=== PATIENT | male | born 1955 | race Caucasian/White ===

== ENCOUNTER 2019-12-24 11:55 | Emergency (ER) | payer OTHER ==
[~2019-12-24] VITALS: Ht 172.7 cm; Wt 75.0 kg
[2019-12-24 12:15] VITALS: BP 137/80
--- NOTE | 2019-12-24 12:40 | PHYS DOC ---
Past History Past Medical History: No Pertinent History Past Surgical History: Other Additional Past Surgical Histo: heart valve repair; pacemaker Alcohol Use: None General Adult EDM: Chief Complaint: TESTICULAR PAIN OR INJURY HPI: HPI: 64-year-old male presents with swollen right testicle. Patient first noticed yesterday. It is gotten worse since that time. It is now very tender and painful. He denies trauma. He has never had this before. Denies fever chills. Review of Systems: Review of Systems: Constitutional: Denies fever or chills Eyes: Denies change in visual acuity HENT: Denies nasal congestion or sore throat Respiratory: Denies cough or shortness of breath Cardiovascular: Denies chest pain or edema GI: Denies abdominal pain, nausea, vomiting, bloody stools or diarrhea : Swollen testicle Musculoskeletal: Denies back pain or joint pain Integument: Denies rash Neurologic: Denies headache, focal weakness or sensory changes Endocrine: Denies polyuria or polydipsia Lymphatic: Denies swollen glands Psychiatric: Denies depression or anxiety Heart Score: Risk Factors: Risk Factors: DM, Current or recent (<one month) smoker, HTN, HLP, family history of CAD, obesity. Risk Scores: Score 0 - 3: 2.5% MACE over next 6 weeks - Discharge Home Score 4 - 6: 20.3% MACE over next 6 weeks - Admit for Clinical Observation Score 7 - 10: 72.7% MACE over next 6 weeks - Early Invasive Strategies Allergies: Allergies: Allergies Coded Allergies Type Severity Reaction Last Updated Verified No Known Drug Allergies 12/24/19 No Physical Exam: PE: Constitutional: Well developed, well nourished, no acute distress, non-toxic appearance. [] HENT: Normocephalic, atraumatic, bilateral external ears normal, oropharynx moist, no oral exudates, nose normal. [] Eyes: PERRLA, EOMI, conjunctiva normal, no discharge. [] Neck: Normal range of motion, no tenderness, supple, no stridor. [] Cardiovascular:Heart rate regular rhythm, no murmur [] Lungs & Thorax: Bilateral breath sounds clear to auscultation [] Abdomen: Bowel sounds normal, soft, no tenderness, no masses, no pulsatile masses. [] Skin: Warm, dry, no erythema, no rash. [] Back: No tenderness, no CVA tenderness. [] Extremities: No tenderness, no cyanosis, no clubbing, ROM intact, no edema. [] Neurologic: Alert and oriented X 3, normal motor function, normal sensory function, no focal deficits noted. [] Psychologic: Affect normal, judgement normal, mood normal. : Swollen testicles right greater than left. [] Current Patient Data: Vital Signs: Vital Signs Date Time Temp Pulse Resp B/P (MAP) Pulse Ox O2 Delivery O2 Flow Rate FiO2 12/24/19 12:15 98.0 84 18 137/80 (99) 96 EKG: EKG: [] Radiology/Procedures: Radiology/Procedures: [] Impressions: EXAM: SCROTAL SONOGRAM WITH DOPPLER. HISTORY: Testicular pain and swelling. COMPARISON: None. FINDINGS: Grayscale and Doppler analysis of the scrotum and contents was performed. The right testicle measures 3.6 x 2.0 x 2.8 cm. The parenchyma is homogeneous without focal lesions. A portion of the epididymal body is heterogeneous and hyperemic. There is a 3 mm cyst in the epididymal head. Internal flow is normal. There is a moderate hydrocele. There is a small varicocele. The left testicle measures 3.8 x 2.8 x 2.0 cm. The parenchyma is homogeneous without focal lesions. The epididymal body appears enlarged and heterogeneous but is not clearly hyperemic. Internal flow is normal. There is a small hydrocele. There is a small varicocele. IMPRESSION: 1. Regions of paratesticular hypervascularity are thought to correspond with the epididymal bodies. Correlate for acute or acute on chronic epididymitis. 2. Small bilateral varicoceles. Correlate to exclude a cause of more proximal venous obstruction. 3. Moderate right and small left hydroceles. Electronically signed by: Rowena Onofre MD (12/24/2019 1:46 PM) [id number] DICTATED AND SIGNED BY: LANE ONOFRE MD DATE: 12/24/19 1346 CC: CODY STEELE DO; PCP,NO ~ Course & Med Decision Making: Course & Med Decision Making Pertinent Labs and Imaging studies reviewed. (See chart for details) The patient's ultrasound is negative for torsion. It is suggestive of epididymitis. I will treat him with levofloxacin 500 mg daily for 10 days. He will follow-up with his family physician and consider urology consult. He is stable for discharge at this time. I will also discharge him with a short course of [place] 5/325 for pain. [] Nieves Disclaimer: Nieves Disclaimer: This electronic medical record was generated, in whole or in part, using a voice recognition dictation system. Departure Departure: Impression: Primary Impression: Acute epididymitis Disposition: HOME/RESIDENCE PRIOR TO ADM Condition: STABLE Referrals: PCP,NO (PCP) Patient Instructions: Epididymitis Scripts Levofloxacin (LEVOFLOXACIN) 500 Mg Tablet 1 TAB PO DAILY for epididymitis, #10 TAB Prov: CODY STEELE DO 12/24/19 Hydrocodone Bit/Acetaminophen (NORCO 5-325 TABLET) 1 Each Tablet 1 TAB PO PRN Q6HRS PRN for PAIN, #14 TAB 0 Refills Prov: CODY STEELE DO 12/24/19 Justification of Admission: Justification of Admission: Justification of Admission Dx: N/A CODY STEELE DO Dec 24, 2019 12:40
[2019-12-24 12:44] LABS: BASO # 0.1 x10^3/uL (0.0-0.2); BASO % 1 % (0-3); EOS # 0.8 x10^3/uL (0.0-0.7); EOS % 7 % (0-3); HEMATOCRIT 42.4 % (39.0-53.0); HEMOGLOBIN 14.4 g/dL (13.0-17.5); LYMPH # 0.7 x10^3/uL (1.0-4.8); LYMPH % 6 % (24-48); MEAN CORPUSCULAR HEMOGLOBIN 31 pg (25-35); MEAN CORPUSCULAR HGB CONC 34 g/dL (31-37); MEAN CORPUSCULAR VOLUME 92 fL (79-100); MONO # 1.2 x10^3/uL (0.0-1.1); MONO % 11 % (0-9); NEUT # 8.3 x10^3uL (1.8-7.7); NEUT % 75 % (31-73); PLATELET COUNT 216 x10^3/uL (140-400); RED CELL DISTRIBUTION WIDTH 13.4 % (11.5-14.5)
[2019-12-24 12:54] LABS: CALCIUM 8.5 mg/dL (8.5-10.1); CREATININE 1.3 mg/dL (0.7-1.3); GFR 55.9; POTASSIUM 3.9 mmol/L (3.5-5.1)
[2019-12-24 13:00] LABS: ALBUMIN/GLOBULIN RATIO 0.7 (1.0-1.7); TOTAL BILIRUBIN 0.4 mg/dL (0.2-1.0); TOTAL PROTEIN 7.2 g/dL (6.4-8.2)
--- NOTE | 2019-12-24 13:49 | RAD ---
EXAM: SCROTAL SONOGRAM WITH DOPPLER. HISTORY: Testicular pain and swelling. COMPARISON: None. FINDINGS: Grayscale and Doppler analysis of the scrotum and contents was performed. The right testicle measures 3.6 x 2.0 x 2.8 cm. The parenchyma is homogeneous without focal lesions. A portion of the epididymal body is heterogeneous and hyperemic. There is a 3 mm cyst in the epididymal head. Internal flow is normal. There is a moderate hydrocele. There is a small varicocele. The left testicle measures 3.8 x 2.8 x 2.0 cm. The parenchyma is homogeneous without focal lesions. The epididymal body appears enlarged and heterogeneous but is not clearly hyperemic. Internal flow is normal. There is a small hydrocele. There is a small varicocele. IMPRESSION: 1. Regions of paratesticular hypervascularity are thought to correspond with the epididymal bodies. Correlate for acute or acute on chronic epididymitis. 2. Small bilateral varicoceles. Correlate to exclude a cause of more proximal venous obstruction. 3. Moderate right and small left hydroceles. Electronically signed by: Rowena Onofre MD (12/24/2019 1:46 PM) [id number]
[2019-12-24] MEDS ORDERED: LEVO500T8 PO (14:15)
[2019-12-24] MEDS ORDERED: HYDR-3165 PO (14:15)
== END 2019-12-24 14:29 | disposition home or self-care (01) ==
LOC: ER 11:55
DX: N45.1 Epididymitis (principal)
CPT/HCPCS: 36415; 76870; 80053; 85025; 99284-25

== ENCOUNTER 2020-04-09 15:12 | Emergency (ER) | payer OTHER ==
[~2020-04-09] VITALS: Ht 175.3 cm; Wt 73.0 kg
[~2020-04-09 15:12] MED LIST: HYDR-3165 PO; LEVO500T8 PO
[2020-04-09 15:21] VITALS: BP 133/75
[2020-04-09] MEDS ORDERED: SULF1TAB23 PO (15:30)
[2020-04-09] MEDS ORDERED: CEPH500T PO (15:30)
[2020-04-09] MEDS ORDERED: HYDR25TA PO (15:31)
--- NOTE | 2020-04-09 15:31 | PHYS DOC ---
Past History Past Medical History: No Pertinent History (HOLLAND BERMUDEZ APRN) Past Surgical History: Other Additional Past Surgical Histo: heart valve repair; pacemaker (HOLLAND BERMUDEZ APRN) Alcohol Use: None (HOLLAND BERMUDEZ APRN) Adult General Chief Complaint Chief Complaint: SKIN RASH/ABSCESS HPI HPI Patient is a 65-year-old male patient who presents complaining of a pruritic rash that began 3 days ago. Patient states he has worms coming out of the skin. Denies any fever. (HOLLAND BERMUDEZ APRN) Review of Systems Review of Systems Constitutional: Denies fever or chills [] Musculoskeletal: Denies back pain or joint pain [] Integument: Reports a pruritic rash Neurologic: Denies headache, focal weakness or sensory changes [] All other systems were reviewed and found to be within normal limits, except as documented in this note. (HOLLAND BERMUDEZ APRN) Allergies Allergies Allergies Coded Allergies Type Severity Reaction Last Updated Verified No Known Drug Allergies 04/09/20 No (HOLLAND BERMUDEZ APRN) Physical Exam Physical Exam Constitutional: Well developed, well nourished, no acute distress, non-toxic appearance. [] Skin: Mild amount of scabbed up region on bilateral upper extremities and small amount of, some of this region slightly erythematous but infected, no drainage. Suspicious for methamphetamine use. Back: No tenderness, no CVA tenderness. [] Extremities: No tenderness, no cyanosis, no clubbing, ROM intact, no edema. [] Neurologic: Alert and oriented X 3, normal motor function, normal sensory function, no focal deficits noted. [] Psychologic: Affect normal, judgement normal, mood normal. [] (HOLLAND BERMUDEZ APRN) EKG EKG [] (HOLLAND BERMUDEZ APRN) Radiology/Procedures Radiology/Procedures [] (HOLLAND BERMUDEZ APRN) Heart Score Risk Factors: Risk Factors: DM, Current or recent (<one month) smoker, HTN, HLP, family history of CAD, obesity. Risk Scores: Risk Factors: DM, Current or recent (<one month) smoker, HTN, HLP, family history of CAD, obesity. (HOLLAND BERMUDEZ APRN) Course & Med Decision Making Course & Med Decision Making Pertinent Labs and Imaging studies reviewed. (See chart for details) This is a 65-year-old male patient presenting to the ED today with infected rashes on bilateral upper extremities as well as scalp. Patient suspicious for methamphetamine use. Tetanus is up-to-date. Discharged on Bactrim and cephalexin. Encouraged to maintain home. Follow-up with primary care doctor in 2 weeks. (HOLLAND BERMUDEZ APRN) Course & Med Decision Making I have participated in the care of this patient and I have reviewed and agree with all pertinent clinical information above including history, exam, and recommendations. (ROB ABDUL MD) Dragon Disclaimer Dragon Disclaimer This electronic medical record was generated, in whole or in part, using a voice recognition dictation system. (HOLLAND BERMUEDZ APRN) Departure Departure: Impression: Primary Impression: Skin infection Disposition: DC HOME SELF CARE/HOMELESS Condition: STABLE Referrals: PCPJOSEPH (PCP) MYKE SANDY MD follow up in 2 weeks Patient Instructions: Rash, Skin Infections Additional Instructions: You have infected rash. Use the prescribed medications as ordered. Follow-up with a construction consultant in 2 weeks or your own primary care doctor. Scripts Hydroxyzine Hcl (HYDROXYZINE HCL) 25 Mg Tablet 1 TAB PO TID, #30 TAB Prov: HOLLAND BERMUDEZ APRN 04/09/20 Sulfamethoxazole/Trimethoprim (BACTRIM 400-80 MG TABLET) 1 Each Tablet 1 TAB PO BID for 10 Days, #20 TAB 0 Refills Prov: HOLLAND BERMUDEZ APRN 04/09/20 Cephalexin (CEPHALEXIN) 500 Mg Tablet 1 TAB PO TID, #30 TAB Prov: HOLLAND BERMUDEZ APRN 04/09/20 HOLLAND BERMUDEZ APRN Apr 09, 2020 15:31 ROB ABUDL MD Apr 09, 2020 16:04
== END 2020-04-09 15:35 | disposition home or self-care (01) ==
LOC: ER 15:12
DX: L08.89 Other specified local infections of the skin and subcutaneous tissue (principal); R21 Rash and other nonspecific skin eruption; L29.9 Pruritus, unspecified; Z95.0 Presence of cardiac pacemaker
CPT/HCPCS: 99283

== ENCOUNTER 2020-10-28 16:38 | Inpatient (IN) | payer OTHER ==
[~2020-10-28] VITALS: Ht 172.7 cm; Wt 68.4 kg
[~2020-10-28 16:38] MED LIST changes: +CEPH500T PO; +HYDR25TA PO; +SULF1TAB23 PO
[2020-10-28] MEDS ORDERED: ASPIRIN CHEWABLE 81 MG TABLET. PO ONE (17:00)
[2020-10-28] MEDS ORDERED: methylPREDNISolone SOD SUCC PF 125 MG/2 ML VIAL. IV ONE ×2 (17:30→19:07)
[2020-10-28] MEDS ORDERED: IPRATRPIUM/ALBUTEROL 0.5/2.5MG 3 ML NEBU. NEB ONE (17:30)
--- NOTE | 2020-10-28 17:33 | PHYS DOC ---
Past History Past Medical History: COPD, Hypertension, Other Additional Past Medical Histor: PACEMAKER, HEART VALVE REPLACEMENT, STROKE, COPD-? (CHI THOMPSON DO) Past Surgical History: Pacemaker, Other Additional Past Surgical Histo: HEART VALVE REPLACEMENT (CHI THOMPSON DO) Alcohol Use: None (CHI THOMPSON DO) Adult General Chief Complaint Chief Complaint: DYSPNEA/RESPIRATOY DISTRESS HPI HPI Patient is a 65-year-old male presenting via POV for shortness of breath. Reports onset was 4 days ago without any known inciting event, trauma, ingestion or exposure. Nothing known makes better, patient reports physical activity and continuing to smoke cigarettes make worse. Patient denies any hesham pain or ripping/tearing sensation in chest but rather endorses generalized tightness with wheezing. He has not had any productive cough, no fever, no sick contacts or recent travel. Reports he has history of COPD but nothing else. When later evaluated and pacemaker was present on chest, he later reports he thinks he has had some heart issues in the past. Also reports having heart valve replacement and is on warfarin, goal INR 2.0-3.0 with last check in range 2 weeks ago (CHI THOMPSON DO) Review of Systems Review of Systems Fourteen body systems of review of systems have been reviewed. See HPI for pertinent positives and negative responses, other sanchez all other systems are negative, non-pertinent or non-contributory (CHI THOMPSON DO) Current Medications Current Medications Current Medications Medications (Trade) Dose Ordered Sig/Everardo Start Time Stop Time Status Last Admin Dose Admin Albuterol/ Ipratropium (Duoneb) 3 ml 1X ONCE 10/28/20 17:30 10/28/20 17:31 10/28/20 17:29 3 ML Aspirin (Aspirin Chewable) 162 mg 1X ONCE 10/28/20 17:00 10/28/20 17:03 DC 10/28/20 17:28 162 MG Methylprednisolone Sodium Succinate (SOLU-Medrol 125MG VIAL) 125 mg 1X ONCE 10/28/20 17:30 10/28/20 17:31 10/28/20 17:29 125 MG (CHI THOMPSON DO) Allergies Allergies Allergies Coded Allergies Type Severity Reaction Last Updated Verified No Known Drug Allergies 04/09/20 No (CHI THOMPSON DO) Physical Exam Physical Exam Constitutional: Well developed, age-appropriate, thin in appearance HENT: Normocephalic, atraumatic, bilateral external ears normal, oropharynx moist, no oral exudates, nose normal. Eyes: PERRLA, EOMI, conjunctiva normal, no discharge. Neck: Normal range of motion, no tenderness, supple, no stridor. Cardiovascular: Heart rate regular, sinus rhythm, no murmurs rubs or gallops, pacemaker present to left upper outer chest Lungs & Thorax: No obvious respiratory distress or increased work of breathing, no accessory muscle use, there is diminished lung sounds to bilateral lobes with end expiratory wheezing present Abdomen: Bowel sounds normal, soft, no tenderness, no masses, no pulsatile masses. Nonsurgical abdomen, no peritoneal signs Skin: Warm, dry, no erythema, no rash. Back: No tenderness, no CVA tenderness. Extremities: No tenderness, no cyanosis, no clubbing, ROM intact, no edema. Neurologic: Alert and oriented X 3, grossly normal motor & sensory function, no focal deficits noted. Psychologic: Affect normal, judgement normal, mood normal. (CHI THOMPSON DO) Current Patient Data Vital Signs Vital Signs Date Time Temp Pulse Resp B/P (MAP) Pulse Ox O2 Delivery O2 Flow Rate FiO2 10/28/20 16:40 97.6 82 24 150/89 (109) 99 Room Air (CHI THOMPSON DO) EKG EKG EKG ordered and interpreted by myself at 1729 hrs. as sinus rhythm at 78 bpm, prolonged QRS at 168, prolonged QTC at 490, left axis deviation, T wave abnormality noted in lead I and aVL, nonspecific ST-T wave changes noted in lead III and aVF with no reciprocal abnormalities. No STEMI (CHI THOMPSON DO) Radiology/Procedures Radiology/Procedures [] (CHI THOMPSON DO) Heart Score C/O Chest Pain: No HEART Score for Chest Pain: HEART Score for Chest Pain Response (Comments) Value History Moderately Suspicious 1 ECG Nonspecific Repolarizatio 1 Age >45 - < 65 1 Risk Factors >3 Risk Factors or Hx CAD 2 Total 5 Risk Factors: Risk Factors: DM, Current or recent (<one month) smoker, HTN, HLP, family history of CAD, obesity. Risk Scores: Risk Factors: DM, Current or recent (<one month) smoker, HTN, HLP, family history of CAD, obesity. (CHI THOMPSON DO) Course & Med Decision Making Course & Med Decision Making Airway patent, breathing unlabored but there is concern for wheeze, IV and vitals obtained History limited as patient is poor historian but appears high risk, physical exam concerning for likely COPD/respiratory related illness such as COPD exacerbation. ER work-up started 162 mg aspirin, 125 mg Solu-Medrol and x1 DuoNeb administered At this time in care, my shift is ending. I gave comprehensive signout to oncoming physician and reviewed work-up that was pending with him and proposed plan of care. Please defer to Dr. Franks's documentation regarding future care of patient while in ER Critical Care Time This patient required critical care. Due to the fact that the patient required a significant amount of one on one physician - patient contact time, ordering and review of studies, arranging urgent treatment with development of a management plan, evaluation of patients response to treatment with frequent reassessments, and discussions with other providers this patient required 35 minutes of critical care time. Critical care time was indicated due to the inherent instability and/or potential for instability in this patient. The critical care time that is allocated to this patient is above and beyond any time spent on any other billable procedures performed on this patient. (CHI THOMPSON DO) Course & Med Decision Making See Dr. Thompson chart for details prior shift change. Denies COVID risks. Has not had COVID vaccinations. Impression: 1. COPD Exacerbation 2. Elevated Trop. 0.064 3. Tobacco 4. Hx. Aortic Value, pacer and CABG- KU 2016 5. Subtherapeutic INR / PT 1.1 (STEVEN FRANKS MD) Dragon Disclaimer Dragon Disclaimer This electronic medical record was generated, in whole or in part, using a voice recognition dictation system. (CHI THOMPSON DO) Departure Departure: Impression: Primary Impression: COPD exacerbation Additional Impression: Elevated troponin Disposition: ADMITTED INPATIENT Admitting Physician: Lalito Rebollar (CHI THOMPSON DO) Condition: STABLE Referrals: PCP,NO (PCP) Dragon Disclaimer This chart was dictated in whole or in part using Voice Recognition software in a busy, high-work load, and often noisy Emergency Department environment. It may contain unintended and wholly unrecognized errors or omissions. (STEVEN FRANKS MD) Problem Qualifiers CHI THOMPSON DO Oct 28, 2020 17:33 STEVEN FRANKS MD Oct 28, 2020 19:04
[2020-10-28 17:36] LABS: BASO # 0.1 x10^3/uL (0.0-0.2); BASO % 1 % (0-3); EOS # 0.7 x10^3/uL (0.0-0.7); EOS % 7 % (0-3); HEMATOCRIT 45.8 % (39.0-53.0); HEMOGLOBIN 15.6 g/dL (13.0-17.5); LYMPH # 2.3 x10^3/uL (1.0-4.8); LYMPH % 21 % (24-48); MEAN CORPUSCULAR HEMOGLOBIN 31 pg (25-35); MEAN CORPUSCULAR HGB CONC 34 g/dL (31-37); MEAN CORPUSCULAR VOLUME 92 fL (79-100); MONO # 1.2 x10^3/uL (0.0-1.1); MONO % 11 % (0-9); NEUT # 6.3 x10^3uL (1.8-7.7); NEUT % 59 % (31-73); PLATELET COUNT 251 x10^3/uL (140-400); RED CELL DISTRIBUTION WIDTH 15.4 % (11.5-14.5); WHITE BLOOD COUNT 10.7 x10^3/uL (4.0-11.0)
[2020-10-28 17:59] LABS: GFR 75.5; POTASSIUM 4.3 mmol/L (3.5-5.1)
[2020-10-28] MEDS ORDERED: AZITHROMYCIN 250 MG TABLET. PO ONE (19:00)
[2020-10-28] MEDS ORDERED: ACETAMINOPHEN 325 MG TABLET PO PRN (19:00)
[2020-10-28] MEDS ORDERED: ONDANSETRON PF 4 MG/2 ML VIAL. IVP PRN (19:00)
[2020-10-28] MEDS ORDERED: WARFARIN 5 MG TABLET. PO ONE (19:15)
[2020-10-28 20:00] VITALS: BP 128/83
--- NOTE | 2020-10-28 20:00 | NUR ---
Pt was admit to ICU bed 6 from ER via [facility], accompanied by EMS and hospital staff. Pt transferred from [facility] to bed independently, steady gait noted. Admission assessment completed. VSS. Pt placed on Telemetry, V.paced on monitor. Pt with hx of mechanical Aortic valve replacement and pacemaker placement. Pt is poor historian but able to given pertinent health/surgical history and home medications. 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 Coumadin and ASA for VTE. Pt has NOT had any Covid vaccines. Pt lives at home with daughter. RT consulted for smoking cessation. POC reviewed with pt, understanding verbalized. Pt was given written information regarding hospital policies, unit procedures and contact persons. Valuables were checked and left at bedside. Pt was given box lunch per request. Dr Smooth russell for admit orders and restarted home medications. Cardiology consult for AM.
[2020-10-28] MEDS ORDERED: WARF7.5T45 PO (20:13)
[2020-10-28] MEDS ORDERED: CLON0.5T4 PO (20:13)
[2020-10-28] MEDS ORDERED: ASPI-630 PO (20:13)
--- NOTE | 2020-10-28 20:20 | RAD ---
Exam Date: 10/28/2020 4:59 PM XR CHEST 1V Indication: Reason: SOB / Spl. Instructions: / History: . FINDINGS/ IMPRESSION: The aorta is calcified. Postoperative changes are noted with cardiac pacemaker in place. Mild bibasil ar scarring and/or atelectasis is seen. The cardiac silhouette and pulmonary vasculature are within normal limits. There is no appreciable pleural effusion or pneumothorax. Electronically signed by: Buddy Barone MD (10/28/2020 8:18 PM) [facility] [place]
[2020-10-28] MEDS: clonazePAM 0.5 MG TABLET PO PRN (20:22)
[2020-10-28] MEDS: NICOTINE 21MG PATCH. TD PRN (20:23)
[2020-10-28] MEDS: IPRATRPIUM/ALBUTEROL 0.5/2.5MG 3 ML NEBU. NEB SCH (20:24)
[2020-10-28 20:40] VITALS: BP 106/76
[2020-10-28 21:40] VITALS: BP 110/67
[2020-10-28] MEDS: methylPREDNISolone SOD SUCC PF 125 MG/2 ML VIAL. IV SCH ×2 (21:59→22:01)
[2020-10-28 22:50] VITALS: BP 107/66
[2020-10-28 23:45] VITALS: BP 103/60
[2020-10-29] VITALS (17 sets, daily range): BP systolic 90–163; BP diastolic 58–107
--- NOTE | 2020-10-29 04:16 | EKG ---
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
[2020-10-29] MEDS: methylPREDNISolone SOD SUCC PF 125 MG/2 ML VIAL. IV SCH ×3 (06:00→22:02)
[2020-10-29] MEDS: IPRATRPIUM/ALBUTEROL 0.5/2.5MG 3 ML NEBU. NEB SCH ×4 (06:20→22:00)
[2020-10-29 06:34] LABS: BASO % 0 % (0-3); EOS % 0 % (0-3); HEMATOCRIT 42.6 % (39.0-53.0); HEMOGLOBIN 14.6 g/dL (13.0-17.5); LYMPH # 0.6 x10^3/uL (1.0-4.8); LYMPH % 6 % (24-48); MEAN CORPUSCULAR HEMOGLOBIN 32 pg (25-35); MEAN CORPUSCULAR HGB CONC 34 g/dL (31-37); MEAN CORPUSCULAR VOLUME 92 fL (79-100); MONO # 0.1 x10^3/uL (0.0-1.1); MONO % 1 % (0-9); NEUT # 9.2 x10^3uL (1.8-7.7); NEUT % 93 % (31-73); PLATELET COUNT 232 x10^3/uL (140-400); RED BLOOD COUNT 4.65 x10^6/uL (4.30-5.70); RED CELL DISTRIBUTION WIDTH 15.2 % (11.5-14.5); WHITE BLOOD COUNT 9.9 x10^3/uL (4.0-11.0)
[2020-10-29 06:48] LABS: CREATININE 1.2 mg/dL (0.7-1.3); GFR 61.1
[2020-10-29] MEDS: ASPIRIN CHEWABLE 81 MG TABLET. PO SCH (08:08)
--- NOTE | 2020-10-29 08:34 | HP ---
ADMIT DATE: 10/28/2020 CHIEF COMPLAINT: Shortness of breath. HISTORY OF PRESENT ILLNESS: The patient is a 65-year-old gentleman admitted through the ED with a gradual progressive 4-day history of dyspnea, orthopnea and exertional dyspnea. No recent fevers or chills. He has a dry nonproductive cough. He is on Coumadin for a mechanical heart valve. Chest x-ray showed COPD changes. He continues to smoke one to 2 packs of cigarettes daily. He has very little insight into his condition. He is admitted then with acute on chronic respiratory failure and exacerbation of chronic obstructive pulmonary disease. 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 He has a mechanical valve. I can auscultate the mechanical click. He is on Coumadin. He also has a permanent pacemaker. He also has had a stroke with minimal residual and chronic obstructive pulmonary disease. CURRENT MEDICATIONS: None. ALLERGIES: He has no known drug allergies. SOCIAL HISTORY: He has no primary care physician. He is disabled. He has been on social security since he was 47. FAMILY HISTORY: His family history indicate parents have in their mid 80s. He has no insight as to what the cause of was. He lives on social security disability. 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 He is not employed now. REVIEW OF SYSTEMS: Significant dyspnea with exertion. No recent COVID exposure. CURRENT MEDICINES: Coumadin only 7.5 mg daily. PHYSICAL EXAMINATION: GENERAL: When I saw him, this is a pleasant gentleman who appears older than his stated age of 65. VITAL SIGNS: Initial vital signs showed a blood pressure 109/67 mmHg. He is afebrile. Oxygen saturation 96% on just 1 liter. Repeat was 95% on room air. HEENT: Head is without trauma. Pupils are reactive. Sclerae nonicteric. Oropharynx clear. NECK: Supple. No bruits identified. LUNGS: Diffuse wheezing bilaterally. CARDIOVASCULAR: Showed distant heart tones. He has normal S1. There is a variable S2. There is a noticeable click of a functioning mechanical heart valve. The tones are crisp. There is a slight soft grade II systolic murmur at the left sternal border. Peripheral pulses are palpable and full. Pacemaker is in the antecubital fossa and well seated. ABDOMEN: Soft. EXTREMITIES: Without edema. NEUROLOGIC: Focally intact. PERTINENT LABORATORY STUDIES: The first set of cardiac enzyme was 0.06, hemoglobin was 10.7 g/dL with a white count of 15,600. INR has been ordered and is pending at this time. ASSESSMENT: 1. This 65-year-old gentleman has acute on chronic respiratory failure. 2. Exacerbation of chronic obstructive pulmonary disease. 3. Continue tobacco addiction. 4. 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 5. Chronic anticoagulation. 6. Permanent pacemaker. 7. Elevation of cardiac enzymes due to stress demand ischemia. PLAN: 1. Admit to the inpatient unit. 2. Serial cardiac enzymes. 3. Solu-Medrol. 4. Nebulizer therapy. 5. Continue Coumadin as ordered. 6. Formal consultation for Cardiology given his positive enzymes. LETA DR: Phoebe TID: [id number]
--- NOTE | 2020-10-29 09:03 | PDOC2 ---
LORI ODOM ELIZABETH 10/29/20 0903: CARDIAC CONSULT DATE OF CONSULT DOS: DATE: 10/29/20 TIME: 08:57 REASON FOR CONSULT Reason for Consult CP, elevated trop REFERRING PHYSICIAN Referring Physician Dr. Rebollar SOURCE Source: Chart review, Patient HPI History of Present Illness This is a 65 yo male who presented secondary to shortness of breath and cough productive of yellow/green sputum. Has been more short of breath the last 4-5 days. Worse with exertion. [place] wheezy. No significant LE edema. [place] any specific chest pain or pressure. No dizziness, diaphoresis, or palpitations. Has a history of mechanical aortic valve replacement. Reports compliance with meds, although suspect he had not been fully compliance as he reports warfarin 7.5mg daily and INR is 1.1 upon arrival. Follows with [facility]. PAST MEDICAL HISTORY Cardiovascular: CAD, HTN, Other (endocarditis ) Pulmonary: COPD CENTRAL NERVOUS SYSTEM: CVA Hepatobiliary: Hep A/B/C (C) PAST SURGICAL HISTORY Past Surgical History: CABG, Pacemaker, Other (aortic valve ) FAMILY HISTORY Family History: Hypertension SOCIAL HISTORY Smoke: 1 pack per day ALCOHOL: none Drugs: Other (h/o meth use ) Lives: with Family CURRENT MEDICATIONS Current Medications Current Medications Aspirin (Aspirin Chewable) 162 mg 1X ONCE PO Last administered on 10/28/20at 17:28; Start 10/28/20 at 17:00; Stop 10/28/20 at 17:03; Status DC Methylprednisolone Sodium Succinate (SOLU-Medrol 125MG VIAL) 125 mg 1X ONCE IV Last administered on 10/28/20at 17:29; Start 10/28/20 at 17:30; Stop 10/28/20 at 17:31; Status DC Albuterol/ Ipratropium (Duoneb) 3 ml 1X ONCE NEB Last administered on 10/28/20at 17:29; Start 10/28/20 at 17:30; Stop 10/28/20 at 17:31; Status DC Ondansetron HCl (Zofran) 4 mg PRN Q4HRS PRN IVP NAUSEA/VOMITING; Start 10/28/20 at 19:00; Stop 10/29/20 at 18:59 Acetaminophen (Tylenol) 650 mg PRN Q4HRS PRN PO FEVER > 100.3'F Last administered on 10/28/20at 20:21; Start 10/28/20 at 19:00; Stop 10/29/20 at 18:59 Albuterol/ Ipratropium (Duoneb) 3 ml RTQID NEB Last administered on 10/29/20at 06:20; Start 10/28/20 at 20:00; Stop 10/29/20 at 19:59 Methylprednisolone Sodium Succinate (SOLU-Medrol 125MG VIAL) 80 mg 1X ONCE IV ; Start 10/28/20 at 19:07; Stop 10/28/20 at 19:08; Status DC Warfarin Sodium (Coumadin) 7.5 mg 1X ONCE PO Last administered on 10/28/20at 20:20; Start 10/28/20 at 19:15; Stop 10/28/20 at 19:16; Status DC Azithromycin (Zithromax) 500 mg 1X ONCE PO Last administered on 10/28/20at 20:20; Start 10/28/20 at 19:00; Stop 10/28/20 at 19:07; Status DC Methylprednisolone Sodium Succinate (SOLU-Medrol 125MG VIAL) 60 mg Q8HRS IV Last administered on 10/29/20at 06:00; Start 10/28/20 at 22:00 Nicotine (Nicoderm Cq 21mg Patch) 1 patch PRN DAILY PRN TD SMOKING CESSATION Last administered on 10/28/20at 20:23; Start 10/28/20 at 20:15 Aspirin (Aspirin Chewable) 81 mg DAILY PO Last administered on 10/29/20at 08:08; Start 10/29/20 at 09:00 Clonazepam (KlonoPIN) 0.5 mg PRN BID PRN PO ANXIETY / AGITATION Last administered on 10/28/20at 20:22; Start 10/28/20 at 20:15 Warfarin Sodium (Coumadin) 7.5 mg DAILY16 PO ; Start 10/29/20 at 16:00 Warfarin Sodium (Coumadin Per Physician) 1 each PRN DAILY PRN MC SEE COMMENTS; Start 10/28/20 at 20:30 Active Scripts Active Reported Clonazepam 0.5 Mg Tablet 0.5 Mg PO PRN BID PRN LAST DOSE GIVEN: DATE: TIME: NEXT DOSE DUE: DATE: TIME: Aspirin 81 Mg Tab.chew 81 Mg PO DAILY LAST DOSE GIVEN: DATE: TIME: NEXT DOSE DUE: DATE: TIME: Warfarin Sodium 7.5 Mg Tablet 7.5 Mg PO DAILY LAST DOSE GIVEN: DATE: TIME: NEXT DOSE DUE: DATE: TIME: ALLERGIES Allergies: Coded Allergies: No Known Drug Allergies (Unverified , 04/09/20) ROS Review of Systems 14 point ROS conducted with pertinent positives noted above in HPI PHYSICAL EXAM General: Alert, Oriented X3, Cooperative, No acute distress HEENT: Atraumatic Lungs: Other (diminished ) Heart: Regular rate, Other (v-paced with underlying SR) Abdomen: Soft Extremities: No edema, Normal pulses Skin: No breakdown Neuro: Normal speech, Sensation intact Psych/Mental Status: Mental status NL, Mood NL MUSCULOSKELETAL: Osteoarthritic changes both hands VITALS Vital Signs Vital Signs Date Time Temp Pulse Resp B/P (MAP) Pulse Ox O2 Delivery O2 Flow Rate FiO2 10/29/20 08:19 97.9 83 101/66 (78) 95 Room Air 10/29/20 07:32 1.0 10/29/20 06:40 20 LABS LABS Laboratory Tests Test 10/28/20 17:15 10/28/20 20:10 10/28/20 22:50 10/29/20 06:09 White Blood Count 10.7 x10^3/uL (4.0-11.0) 9.9 x10^3/uL (4.0-11.0) Red Blood Count 5.00 x10^6/uL (4.30-5.70) 4.65 x10^6/uL (4.30-5.70) Hemoglobin 15.6 g/dL (13.0-17.5) 14.6 g/dL (13.0-17.5) Hematocrit 45.8 % (39.0-53.0) 42.6 % (39.0-53.0) Mean Corpuscular Volume 92 fL (79-100) 92 fL (79-100) Mean Corpuscular Hemoglobin 31 pg (25-35) 32 pg (25-35) Mean Corpuscular Hemoglobin Concent 34 g/dL (31-37) 34 g/dL (31-37) Red Cell Distribution Width 15.4 % (11.5-14.5) 15.2 % (11.5-14.5) Platelet Count 251 x10^3/uL (140-400) 232 x10^3/uL (140-400) Neutrophils (%) (Auto) 59 % (31-73) 93 % (31-73) Lymphocytes (%) (Auto) 21 % (24-48) 6 % (24-48) Monocytes (%) (Auto) 11 % (0-9) 1 % (0-9) Eosinophils (%) (Auto) 7 % (0-3) 0 % (0-3) Basophils (%) (Auto) 1 % (0-3) 0 % (0-3) Neutrophils # (Auto) 6.3 x10^3uL (1.8-7.7) 9.2 x10^3uL (1.8-7.7) Lymphocytes # (Auto) 2.3 x10^3/uL (1.0-4.8) 0.6 x10^3/uL (1.0-4.8) Monocytes # (Auto) 1.2 x10^3/uL (0.0-1.1) 0.1 x10^3/uL (0.0-1.1) Eosinophils # (Auto) 0.7 x10^3/uL (0.0-0.7) 0.0 x10^3/uL (0.0-0.7) Basophils # (Auto) 0.1 x10^3/uL (0.0-0.2) 0.0 x10^3/uL (0.0-0.2) Prothrombin Time 11.1 SEC (9.4-11.4) 11.1 SEC (9.4-11.4) Prothromb Time International Ratio 1.1 (0.9-1.1) 1.1 (0.9-1.1) Activated Partial Thromboplast Time 32 SEC (23-33) Sodium Level 142 mmol/L (136-145) 143 mmol/L (136-145) Potassium Level 4.3 mmol/L (3.5-5.1) 4.0 mmol/L (3.5-5.1) Chloride Level 107 mmol/L (98-107) 108 mmol/L (98-107) Carbon Dioxide Level 25 mmol/L (21-32) 24 mmol/L (21-32) Anion Gap 10 (6-14) 11 (6-14) Blood Urea Nitrogen 21 mg/dL (8-26) 25 mg/dL (8-26) Creatinine 1.0 mg/dL (0.7-1.3) 1.2 mg/dL (0.7-1.3) Estimated GFR (Cockcroft-Gault) 75.5 61.1 Glucose Level 73 mg/dL (70-99) 218 mg/dL (70-99) Calcium Level 9.0 mg/dL (8.5-10.1) 9.0 mg/dL (8.5-10.1) Troponin I Quantitative 0.064 ng/mL (0-0.055) 0.067 ng/mL (0-0.055) 0.061 ng/mL (0-0.055) BG-Hkp-T-Type Natriuretic Peptide 173 pg/mL (0-124) ECHOCARDIOGRAM Echocardiogram 10/03/17 - 2-D + DOPPLER ECHOCARDIOGRAM Interpretation Summary Hyperdynamic left ventricle with an EF of 65-70%. Abnormal septal motion consistent with prior cardiac surgery, otherwise no regional wall motion abnormalities. Mild LVH. Moderate diastolic dysfunction. Elevated left atrial pressure. Normal right ventricular size and function. Right-sided pacer leads are noted. MAC with trace MR. Mild TR. There is a 23 mm [place] mechanical aortic valve replacement. The valve was not visualized itself, but the gradients do suggest prosthetic stenosis. The peak velocity was 4.2 m/s, the peak gradient was 72 mmHg, the mean gradient was 33 mmHg. There is trace transvalvular AI, there is no paravalvular AI. Peak PAP of 19 mmHg. Normal aortic root diameter. No pericardial effusion. This was compared to the prior study obtained on 06/18/2015. It showed an EF of 60%, RV function was normal, right-sided pacer leads were noted, there is mild TR, the mechanical aortic valve replacement had a peak velocity of 3.4 m/s, with a peak gradient 45 mmHg, and a mean gradient 22 mmHg, there is no significant AI, the peak bony pressure is 23 mmHg, the aortic root was normal in size. There has been progressive elevation of the mechanical aortic valve gradient since the prior study, suggestive of progressive stenosis. STRESS TEST Stress Test 07/18/2015 SUMMARY/OPINION: This study is normal with no evidence of significant myocardial ischemia. Left ventricular systolic function is normal. There are no high risk prognostic indicators present. The ECG portion of the study is negative for ischemia. There are no prior studies available for comparison. In aggregate the current study is low risk in regards to predicted annual cardiovascular mortality rate. HEART CATH Heart Cath 09/15/2012 A 100 percent occluded heavily calcific mid RCA lesion, status post failed att empt at revascularization. A 60 percent mid LAD lesion and 30 percent diffuse distal and apical stenosis. Completely occluded vein graft to the obtuse marginal branch. A 70 percent mid left circumflex/ostial 1st obtuse marginal branch lesions. Successful rotational atherectomy with a 1.5 mm multilink of the mid RCA. Successful stenting of the mid RCA using a Vision bare metal stent 3.5 x 28 mm postdilated with a 4.0 mm balloon. ASSESSMENT/PLAN Assessment/Plan 1. Dyspnea with AE COPD with ongoing tobaccosim 2. Mild troponin elevation; peak 0.067. most probably type type II, demand ischemia. CP free. 3. CAD s/p CABG 2000 and more recent PCI/stent to RCA in 2012. Follows with [facility] 4. HTN; controlled 5. PAFIB; maintaining SR 6. SSS s/p PPM (Medtronic); v-paced 7. H/o bicuspid aortic valve and infectious endocarditis s/p mechanical aortic valve replacement 2000. chronic OAC with warfarin. INR 1.1. Patient reports compliance with warfarin. 8. H/o CVA 9. Suspected noncompliance Recommendations Secondary prevention; continue ASA. Add statin Add BB for rate control Warfarin for stroke prophylaxis Will use Lovenox while INR subtherapeutic Outpatient ischemic evaluation Ongoing lung optimization Supportive care Discussed importance of medical compliance MELISSA AGUILERA MD 10/29/208: CARDIAC CONSULT ASSESSMENT/PLAN Assessment/Plan Patient seen and examined. Agree with TELEPHONE OPERATOR RECEPTIONIST's assessment and plan. Continue current treatment for AECOPD Slight trop elevation prob demand ischemia CAD clinically stable. Plan outpatient ischemic evaluation PAF presently SR. s/p mechanical AVR - Continue warfarin for stroke prophylaxis. Agree with lovenox bridging for subtherapeutic INR Thank you for your consultation LORI ODOM APRN Oct 29, 2020 09:03 MELISSA AGUILERA MD Oct 29, 2020 22:38
[2020-10-29] MEDS: ENOXAPARIN ** NOTE DOSE ** SYRINGE SQ SCH ×2 (10:11→20:55)
[2020-10-29] MEDS: WARFARIN 7.5 MG TABLET. PO SCH ×2 (12:32→16:00)
[2020-10-29] MEDS ORDERED: WARFARIN 5 MG TABLET. PO ONE (13:00)
--- NOTE | 2020-10-29 17:12 | NUR ---
SHIFT NOTE Pt resting comfortably throughout day. No complaints of pain. Plan of care includes improving breathing and reaching a therapeutic INR. Dr. Rebollar prescribed Lovenox BID to bridge. VSS throughout day. Will continue to monitor. GREG RN
[2020-10-29] MEDS ORDERED: METOPROLOL SUCC 24HR ER 25 MG TAB.ER.24H. PO ONE (18:45)
[2020-10-29] MEDS: clonazePAM 0.5 MG TABLET PO PRN (20:55)
[2020-10-29] MEDS: NICOTINE 21MG PATCH. TD PRN (20:55)
[2020-10-29] MEDS ORDERED: ATORVASTATIN CALCIUM 20 MG TABLET PO SCH (21:00)
[2020-10-30 03:15] VITALS: BP 129/88
[2020-10-30 03:45] VITALS: BP 119/80
[2020-10-30 05:10] VITALS: BP 138/80
[2020-10-30] MEDS: IPRATRPIUM/ALBUTEROL 0.5/2.5MG 3 ML NEBU. NEB SCH ×2 (05:27→09:32)
[2020-10-30] MEDS: methylPREDNISolone SOD SUCC PF 125 MG/2 ML VIAL. IV SCH (05:38)
--- NOTE | 2020-10-30 08:19 | PDOC ---
CARDIO Progress Notes Date & Time Date of Service DATE: 10/30/20 TIME: 08:16 Time of Evaluation 08:16 Subjective Notes Breathing improved. No chest pain, palpitations, dizziness Vitals Vitals Vital Signs Date Time Temp Pulse Resp B/P (MAP) Pulse Ox O2 Delivery O2 Flow Rate FiO2 10/30/20 05:29 97 Room Air 10/30/20 05:10 98.4 83 20 138/80 (99) 10/29/20 07:32 1.0 Weight Weight [ ] Input and Output I.O. Intake and Output 10/30/20 07:00 Intake Total 2070 ml Output Total 300 ml Balance 1770 ml Intake Oral 2070 ml Output Urine Total 300 ml # Voids 9 # Bowel Movements 2 Laboratory Labs Laboratory Tests Test 10/28/20 17:15 10/28/20 20:10 10/28/20 22:50 10/29/20 06:09 White Blood Count 10.7 x10^3/uL (4.0-11.0) 9.9 x10^3/uL (4.0-11.0) Red Blood Count 5.00 x10^6/uL (4.30-5.70) 4.65 x10^6/uL (4.30-5.70) Hemoglobin 15.6 g/dL (13.0-17.5) 14.6 g/dL (13.0-17.5) Hematocrit 45.8 % (39.0-53.0) 42.6 % (39.0-53.0) Mean Corpuscular Volume 92 fL (79-100) 92 fL (79-100) Mean Corpuscular Hemoglobin 31 pg (25-35) 32 pg (25-35) Mean Corpuscular Hemoglobin Concent 34 g/dL (31-37) 34 g/dL (31-37) Red Cell Distribution Width 15.4 % (11.5-14.5) 15.2 % (11.5-14.5) Platelet Count 251 x10^3/uL (140-400) 232 x10^3/uL (140-400) Neutrophils (%) (Auto) 59 % (31-73) 93 % (31-73) Lymphocytes (%) (Auto) 21 % (24-48) 6 % (24-48) Monocytes (%) (Auto) 11 % (0-9) 1 % (0-9) Eosinophils (%) (Auto) 7 % (0-3) 0 % (0-3) Basophils (%) (Auto) 1 % (0-3) 0 % (0-3) Neutrophils # (Auto) 6.3 x10^3uL (1.8-7.7) 9.2 x10^3uL (1.8-7.7) Lymphocytes # (Auto) 2.3 x10^3/uL (1.0-4.8) 0.6 x10^3/uL (1.0-4.8) Monocytes # (Auto) 1.2 x10^3/uL (0.0-1.1) 0.1 x10^3/uL (0.0-1.1) Eosinophils # (Auto) 0.7 x10^3/uL (0.0-0.7) 0.0 x10^3/uL (0.0-0.7) Basophils # (Auto) 0.1 x10^3/uL (0.0-0.2) 0.0 x10^3/uL (0.0-0.2) Prothrombin Time 11.1 SEC (9.4-11.4) 11.1 SEC (9.4-11.4) Prothromb Time International Ratio 1.1 (0.9-1.1) 1.1 (0.9-1.1) Activated Partial Thromboplast Time 32 SEC (23-33) Sodium Level 142 mmol/L (136-145) 143 mmol/L (136-145) Potassium Level 4.3 mmol/L (3.5-5.1) 4.0 mmol/L (3.5-5.1) Chloride Level 107 mmol/L (98-107) 108 mmol/L (98-107) Carbon Dioxide Level 25 mmol/L (21-32) 24 mmol/L (21-32) Anion Gap 10 (6-14) 11 (6-14) Blood Urea Nitrogen 21 mg/dL (8-26) 25 mg/dL (8-26) Creatinine 1.0 mg/dL (0.7-1.3) 1.2 mg/dL (0.7-1.3) Estimated GFR (Cockcroft-Gault) 75.5 61.1 Glucose Level 73 mg/dL (70-99) 218 mg/dL (70-99) Calcium Level 9.0 mg/dL (8.5-10.1) 9.0 mg/dL (8.5-10.1) Troponin I Quantitative 0.064 ng/mL (0-0.055) 0.067 ng/mL (0-0.055) 0.061 ng/mL (0-0.055) TT-Gkq-[id number]-Type Natriuretic Peptide 173 pg/mL (0-124) Triglycerides Level 30 mg/dL (0-150) Cholesterol Level 133 mg/dL (0-200) LDL Cholesterol, Calculated 75 mg/dL (0-100) VLDL Cholesterol, Calculated 6 mg/dL (0-40) Non-HDL Cholesterol Calculated 81 mg/dL (0-129) HDL Cholesterol 52 mg/dL (40-60) Cholesterol/HDL Ratio 2.0 Test 10/30/20 05:43 Prothrombin Time 20.9 SEC (9.4-11.4) Prothromb Time International Ratio 2.1 (0.9-1.1) Physical Exams HEENT: Neck Supple W Full Motion Chest: Symmetric Heart: RRR (v-paced with underlying SR) Abdomen: Soft N/T Extremities: No Edema Neurology: alert, oriented, follow commands Assessment Assessment 1. Dyspnea with AE COPD with ongoing tobaccosim. improved. Smoking cessation reinforced 2. Mild troponin elevation; peak 0.067. most probably type type II, demand ischemia. CP free. 3. CAD s/p CABG 2000 and more recent PCI/stent to RCA in 2012. Follows with [facility]. clinically stable 4. HTN; controlled 5. PAFIB; episode of AFIB/flutter with RVR yesterday evening. Now back in SR with controlled rate with resumption of BB 6. SSS s/p PPM (Medtronic); v-paced 7. H/o bicuspid aortic valve and infectious endocarditis s/p mechanical aortic valve replacement 2000. chronic OAC with warfarin. INR now 2.1 8. H/o CVA 9. Suspected noncompliance Recommendations Secondary prevention; continue ASA, statin Metoprolol for rate control Warfarin for stroke prophylaxis Outpatient ischemic evaluation Lung optimization Reinforced importance of medical compliance Follow up with [facility] upon discharge Supportive care LORI ODOM APRN Oct 30, 2020 08:19
[2020-10-30] MEDS ORDERED: METOPROLOL SUCC 24HR ER 25 MG TAB.ER.24H. PO SCH (09:00)
[2020-10-30] MEDS: ASPIRIN CHEWABLE 81 MG TABLET. PO SCH (09:02)
[2020-10-30] MEDS: WARFARIN 7.5 MG TABLET. PO SCH ×2 (09:02→09:47)
[2020-10-30] MEDS: ENOXAPARIN ** NOTE DOSE ** SYRINGE SQ SCH (09:03)
[2020-10-30 11:00] VITALS: BP 128/76
--- NOTE | 2020-10-30 12:03 | DS ---
DATE OF DISCHARGE: 10/30/2020 ATTENDING PHYSICIAN: Dr. Rebollar. FINAL DISCHARGE DIAGNOSES: 1. A 65-year-old gentleman with acute on chronic respiratory failure. 2. Exacerbation of chronic obstructive pulmonary disease. 3. Continue tobacco addiction. 4. History of intravenous drug use, resulting endocarditis and subsequent mechanical aortic valve replacement. 5. Chronic anticoagulation. 6. Permanent pacemaker. 7. Elevation of cardiac enzymes with a stress demand ischemia. 8. Noncompliance to meds with subtherapeutic INR. 9. Continue tobacco addiction. HISTORY AND PHYSICAL: The patient is a 65-year-old gentleman with multiple medical issues including a mechanical heart valve from endocarditis. He is noncompliant. He was admitted with shortness of breath. He had elevation of cardiac enzymes. PHYSICAL EXAMINATION: Please see my dictated note. PERTINENT LABORATORY AND X-RAY STUDIES: Admission hemoglobin was 15.6 g/dL with a white count of 10,700. Electrolytes within normal range. The creatinine is 1.2 mg percent. Three sets of enzymes was reported at 0.06, 0.06 and 0.06. The INR was initially 1.1, repeated the next day after Coumadin therapy was 2.1. COURSE IN THE HOSPITAL: The patient was admitted. He was started on nebulizer therapy, intravenous steroids. Cardiology consultation was entertained. Their recommendation is on the chart. At this time, they felt that the echocardiogram was adequate. He had a heart catheterization in 2012. These results were reviewed. They felt that his treatment should be for management of his symptoms, trying to avoid cigarette use whether or not he will agree remains to be seen. By the third hospital day, he was doing better, lungs were clear, vital signs were stable and he had adequate oxygenation of 97% on room air. Blood pressure and vital signs were stable and INR therapeutic. He is discharged home with a prescription for prednisone 60 mg p.o. daily for the next 7 days and stop. I gave him a script for Coumadin 7.5 mg p.o. daily, Aspirin. He should take the Klonopin p.r.n. He will follow up with his Account Adjuster in the next month. Strong encouragement to avoid further tobacco use. I really doubt that he is going to quit. In any event, he was discharged from our hospital in stable condition with explicit drug and followup care. Total discharge time was [address]: Phoebe TID: [id number]
== END 2020-10-30 10:30 | disposition home or self-care (01) | DRG 190 ==
LOC: ER 16:38 → ICU 19:00
PROVIDERS: ADMIT Hospitalist; ATTEND Hospitalist
DX: J44.1 Chronic obstructive pulmonary disease with (acute) exacerbation (principal); J96.20 Acute and chronic respiratory failure, unspecified whether with hypoxia or hypercapnia; I24.8 Other forms of acute ischemic heart disease; I48.92 Unspecified atrial flutter; F17.210 Nicotine dependence, cigarettes, uncomplicated; I10 Essential (primary) hypertension; I49.5 Sick sinus syndrome; I48.0 Paroxysmal atrial fibrillation; I25.10 Atherosclerotic heart disease of native coronary artery without angina pectoris; R79.1 Abnormal coagulation profile; Z79.01 Long term (current) use of anticoagulants; Z91.14 Patient's other noncompliance with medication regimen; Z95.2 Presence of prosthetic heart valve; Z95.1 Presence of aortocoronary bypass graft; Z95.0 Presence of cardiac pacemaker; Z95.5 Presence of coronary angioplasty implant and graft; Z91.19 Patient's noncompliance with other medical treatment and regimen; Z86.73 Personal history of transient ischemic attack (TIA), and cerebral infarction without residual deficits; Z82.49 Family history of ischemic heart disease and other diseases of the circulatory system; Z86.19 Personal history of other infectious and parasitic diseases
CPT/HCPCS: 36415; 71045; 80048; 80061; 83880; 84484; 85025; 85610; 85730; 93005; 94640; 96374; 99406; G0238; J1650; J2930; 99285-25

== ENCOUNTER 2020-12-04 20:53 | Emergency (ER) | payer OTHER ==
[~2020-12-04] VITALS: Ht 172.7 cm; Wt 68.0 kg
[~2020-12-04 20:53] MED LIST changes: +ASPI-630 PO; +CLON0.5T4 PO; +WARF7.5T45 PO
[2020-12-04] MEDS ORDERED: MORPHINE SULFATE 4 MG/ML DISP.SYRIN. IV ONE (21:45)
[2020-12-04] MEDS ORDERED: predniSONE 10 MG TABLET. PO ONE (21:45)
[2020-12-04] MEDS ORDERED: ONDANSETRON PF 4 MG/2 ML VIAL. IVP ONE (21:45)
--- NOTE | 2020-12-04 21:55 | PHYS DOC ---
Past History Past Medical History: COPD, Hypertension, Other Additional Past Medical Histor: PACEMAKER, HEART VALVE REPLACEMENT, STROKE, COPD-? (ABHISHEK BALLARD APRN) Additional Past Medical Histor: Prior intravenous drug use, pacemaker, COPD (CASSY GARDINER MD) Past Surgical History: No Surgical History Additional Past Surgical Histo: HEART VALVE REPLACEMENT (ABHISHEK BALLARD APRN) Additional Past Surgical Histo: Pacemaker placement (CASSY GARDINER MD) Alcohol Use: Rarely (ABHISHEK BALLARD APRN) Smoking: Cigarettes (CASSY GARDINER MD) General Adult EDM: Chief Complaint: LOWER EXTREMITY EDEMA HPI: HPI: Patient is a 65-year-old male who presents with complaints of right hand swelling and right foot swelling. Patient is complaining of pain to his right thumb and right great toe. Patient states the pain started this morning. Pain is worsened by touch. Denies taking anything for discomfort. Denies injury. History of COPD, hypertension, CVA, anxiety. (ABHISHEK BALLARD APRN) HPI: 65-year-old male presents to the emergency department with several complaints, his chief complaint is of swelling and pain in the right hand around the first digit and the right first toe, did not have known history of gout, history in the past of endocarditis many years ago and has an artificial heart valve, pacemaker, COPD, denies any swelling in either leg or arm, no chest pain or shortness of breath, no fever, chills, no focal numbness weakness/tingling (CASSY GARDINER MD) Review of Systems: Review of Systems: Constitutional: Denies fever or chills Eyes: Denies change in visual acuity HENT: Denies nasal congestion or sore throat Respiratory: Denies cough or shortness of breath Cardiovascular: Denies chest pain or edema GI: Denies abdominal pain, nausea, vomiting, bloody stools or diarrhea : Denies dysuria Musculoskeletal: Denies back pain or joint pain Integument: Reports right thumb and right great toe pain, some redness and swelling Neurologic: Denies headache, focal weakness or sensory changes Endocrine: Denies polyuria or polydipsia Lymphatic: Denies swollen glands Psychiatric: Reports history of depression anxiety (ABHISHEK BALLARD APRN) Review of Systems: General: no fevers , no chills, no general weakness Eyes: no blurred vision, no diplopia Skin: no rashes Neck: no swelling, no neck stiffness, no neck pain Heme: no bleeding, no lymph node enlargement Ear/Nose/Throat: No sore throat, no runny nose, no hearing loss, no difficulty swallowing Cardiovascular: no Chest pain, no palpitations Respiratory: No dyspnea, no cough, no hemoptysis Gastrointestinal: No abdominal pain, no nausea, no vomiting, no diarrhea, no blood in stool Genitourinary: no dysuria, no hematuria Musculoskeletal: no back pain, no leg pain, no arm pain,positive for arthralgia Neurologic: no headaches, no dizziness, no focal numbness/tingling, no focal weakness Psych: no depression, no anxiety, no SI/HI *All review of systems are negative other than what is noted above (CASSY GARDINER MD) Allergies: Allergies: Allergies Coded Allergies Type Severity Reaction Last Updated Verified No Known Drug Allergies 04/09/20 No (ABHISHEK BALLARD APRN) Physical Exam: PE: Constitutional: Well developed, well nourished, no acute distress, non-toxic appearance. [] HENT: Normocephalic, atraumatic, bilateral external ears normal, oropharynx moist, no oral exudates, nose normal. [] Eyes: PERRLA, EOMI, conjunctiva normal, no discharge. [] Neck: Normal range of motion, no tenderness, supple, no stridor. [] Cardiovascular:Heart rate regular rhythm, no murmur [] Lungs & Thorax: Bilateral breath sounds clear to auscultation [] Abdomen: Bowel sounds normal, soft, no tenderness, no masses, no pulsatile masses. [] Skin: Red, tenderness, right great toe, right thumb Back: No tenderness, no CVA tenderness. [] Extremities: No tenderness, no cyanosis, no clubbing, ROM intact, right hand swelling Neurologic: Alert and oriented X 3, normal motor function, normal sensory function, no focal deficits noted. [] Psychologic: Affect normal, anxious, agitated (ABHISHEK BALLARD APRN) PE: Gen-well appearing, no acute distress Head: Normocephalic/Atraumatic ENT: atraumatic, PERRLA, EOMI, oropharynx clear Neck: supple, full ROM/strength, no JVD, no nuchal rigidity Lungs: no distress, speaks in full sentences, Clear to auscultation bilaterally CV: reg rate, rhythm, no murmus/rubs/gallops, peripheral pulses equal in all extremities Abdomen: soft/nontender, no guarding/rebound tenderness, no rigidity, non distended, normoactive bowel sounds Musculoskeletal: full ROM/strength in all extremities, atraumatic, no swelling Back: full range of motion/strength Skin: intact, no rashes Lymph: no gross ANSHU Neuro: alert and oriented x 4, CN 2-12 grossly intact, Motor strength is 5/5 in all extremities, no focal sensory deficits, no focal ataxia, ambulatory with steady gait Psych: normal mood/affect (CASSY GARDINER MD) Current Patient Data: Vital Signs: Vital Signs Date Time Temp Pulse Resp B/P (MAP) Pulse Ox O2 Delivery O2 Flow Rate FiO2 12/04/20 21:13 97.8 81 16 164/98 100 Room Air (ABHISHEK BALLARD APRN) EKG: EKG: [] (ABHISHEK BALLARD APRN) Radiology/Procedures: Radiology/Procedures: [] (ABHISHEK BALLARD APRN) Heart Score: C/O Chest Pain: No Risk Factors: Risk Factors: DM, Current or recent (<one month) smoker, HTN, HLP, family history of CAD, obesity. Risk Scores: Score 0 - 3: 2.5% MACE over next 6 weeks - Discharge Home Score 4 - 6: 20.3% MACE over next 6 weeks - Admit for Clinical Observation Score 7 - 10: 72.7% MACE over next 6 weeks - Early Invasive Strategies (ABHISHEK BALLARD APRN) C/O Chest Pain: No (CASSY GARDINER MD) Course & Med Decision Making: Course & Med Decision Making Pertinent Labs and Imaging studies reviewed. (See chart for details) [] 65-year-old male who presents with complaints of right hand, and right foot swelling. Patient reports pain to his right thumb and right great toe. Upon physical exam, first, MTP joint affected. Denies known injury. Denies history of gout. Patient appears very anxious and is hyperventilating. Patient is hemodynamically stable. Patient given 4 mg of morphine, 4 mg of Zofran, 50 mg prednisone. Transfer of patient care to Dr. Gardiner at 2150. (ABHISHEK BALLARD APRN) Course & Med Decision Making 65-year-old male presented to ED complaining of first great toe pain/MTP pain on the right foot and also on the right first digit of the hand, no swelling in the limbs, likely causes gout versus another arthropathy, no signs of any septic arthritis, he has normal neurovascular, tendon ligamentous function throughout the lower and upper extremities, unlikely DVT and his well score is -2 and as an alternative diagnosis is much more likely, plan this time is to check labs, treat him with medicine, will use to treat gouty arthritis, I will refer him to primary care for close follow-up, did not see any signs of any acute cardiopulmonary etiology however and I do not see a clear indication for emergent imaging at this time Patient was seen in the ED for arthralgias, there is no apparent evidence of any emergency medical pathology at this time, patient was advised follow-up with their primary care provider /physician in the next 24-48 hours and to return to the ED before then if any new or worsening / concerning symptoms had developed. All questions and concerns were addressed at time of disposition (CASSY GARDINER MD) Dragon Disclaimer: Nieves Disclaimer: This electronic medical record was generated, in whole or in part, using a voice recognition dictation system. (ABHISHEK BALLARD APRN) Departure Departure: Impression: Primary Impression: Arthralgia Qualified Codes: M25.50 - Pain in unspecified joint Disposition: HOME / SELF CARE / HOMELESS Condition: IMPROVED Referrals: PCP,NO (PCP) SILVINA KHAN MD Patient Instructions: Gout Additional Instructions: I believe that you may have a case of gout, I want you to take the medicines that I am prescribing you and follow-up with her primary care doctor in the next 24 to 48 hours, return to the emergency room before then if any new or worsening/concerning symptoms develop Scripts Methylprednisolone (MEDROL) 4 Mg Tab.ds.pk 1 PKG PO UD for steroid, #1 PKG Prov: CASSY GARDINER MD 12/05/20 Naproxen Sodium (ANAPROX DS) 550 Mg Tablet 1 TAB PO BID PRN for PAIN for 15 Days, #15 TAB 0 Refills Prov: CASSY GARDINER MD 12/05/20 ABHISHEK BALLARD APRN Dec 04, 2020 21:55 CASSY GARDINER MD Dec 04, 2020 23:56
[2020-12-04 22:29] LABS: BASO # 0.1 x10^3/uL (0.0-0.2); BASO % 1 % (0-3); EOS # 0.3 x10^3/uL (0.0-0.7); EOS % 3 % (0-3); HEMATOCRIT 45.2 % (39.0-53.0); HEMOGLOBIN 15.5 g/dL (13.0-17.5); LYMPH # 1.5 x10^3/uL (1.0-4.8); LYMPH % 14 % (24-48); MEAN CORPUSCULAR HEMOGLOBIN 31 pg (25-35); MEAN CORPUSCULAR HGB CONC 34 g/dL (31-37); MEAN CORPUSCULAR VOLUME 90 fL (79-100); MONO # 1.5 x10^3/uL (0.0-1.1); MONO % 14 % (0-9); NEUT # 7.2 x10^3uL (1.8-7.7); NEUT % 68 % (31-73); PLATELET COUNT 268 x10^3/uL (140-400); RED BLOOD COUNT 5.01 x10^6/uL (4.30-5.70); RED CELL DISTRIBUTION WIDTH 14.5 % (11.5-14.5); WHITE BLOOD COUNT 10.6 x10^3/uL (4.0-11.0)
[2020-12-04 22:38] LABS: CALCIUM 8.8 mg/dL (8.5-10.1); GFR 75.5; POTASSIUM 4.1 mmol/L (3.5-5.1)
[2020-12-04 22:43] LABS: ALBUMIN 3.7 g/dL (3.4-5.0); ALBUMIN/GLOBULIN RATIO 0.9 (1.0-1.7); TOTAL BILIRUBIN 0.4 mg/dL (0.2-1.0); TOTAL PROTEIN 7.8 g/dL (6.4-8.2); URIC ACID 5.3 mg/dL (3.5-7.2)
[2020-12-04 23:38] LABS: SEDIMENTATION RATE 15 (0-15)
[2020-12-04 23:58] LABS: BACTERIA,URINE 0 /HPF (0-FEW); BILIRUBIN,URINE NEG (NEG); CLARITY,URINE CLEAR; COLOR,URINE YELLOW; GLUCOSE,URINE NEG (NEG); NITRITE,URINE NEG (NEG); RBC,URINE RARE /HPF (0-2); SQUAMOUS EPITHELIAL CELL,UR OCC /LPF; UROBILINOGEN,URINE 0.2 mg/dL (0.2 mg/dL); WBC,URINE OCC /HPF (0-4)
[2020-12-05] MEDS ORDERED: METH4TAB2 PO
[2020-12-05] MEDS ORDERED: NAPR-682 PO
[2020-12-05 06:49] VITALS: BP 103/55
== END 2020-12-05 00:25 | disposition home or self-care (01) ==
LOC: ER 20:53
DX: M25.541 Pain in joints of right hand (principal); M25.571 Pain in right ankle and joints of right foot; R22.31 Localized swelling, mass and lump, right upper limb; R22.41 Localized swelling, mass and lump, right lower limb; J44.9 Chronic obstructive pulmonary disease, unspecified; I10 Essential (primary) hypertension; F17.210 Nicotine dependence, cigarettes, uncomplicated; Z95.0 Presence of cardiac pacemaker
CPT/HCPCS: 36415; 80053; 81001; 83880; 84550; 85025; 85651; 96374; 96375; 99285; J2270; J2405; J7512

== ENCOUNTER 2021-01-23 11:19 | Emergency (ER) | payer OTHER ==
[~2021-01-23] VITALS: Ht 175.3 cm; Wt 68.2 kg
[~2021-01-23 11:19] MED LIST changes: +METH4TAB2 PO; +NAPR-682 PO
[2021-01-23 11:54] VITALS: BP 152/86
[2021-01-23] MEDS ORDERED: CEPH500T PO (11:54)
--- NOTE | 2021-01-23 11:54 | PHYS DOC ---
Past History Past Medical History: COPD, Hypertension, Other Additional Past Medical Histor: Prior intravenous drug use, pacemaker, COPD Past Surgical History: No Surgical History Additional Past Surgical Histo: Pacemaker placement Smoking: Cigarettes Alcohol Use: Rarely General Adult EDM: Chief Complaint: FACE PROBLEM HPI: HPI: 65-year-old male with history of previous stroke and previous cellulitis of her scalp presents to the emergency department complaining of lesions to his occipital scalp area along with lesions over his nose and right arm. He reports that he is concerned he is developing another episode of cellulitis. He reports in the past he had a severe episode of cellulitis over his scalp and now is coming in early to make sure he does not miss a new episode of it. He reports mild pain over the scalp, no drainage. He reports that he lives next to a dumpster with lots of flies. The patient denies nausea, vomiting, fever, chills, recent trauma, or any other complaints. Review of Systems: Review of Systems: Review of systems is otherwise negative except for what was mentioned in the HPI Allergies: Allergies: Allergies Coded Allergies Type Severity Reaction Last Updated Verified No Known Drug Allergies 04/09/20 No Physical Exam: PE: Constitutional: No acute distress, non-toxic appearance. HENT: Nose appears normal, there is several red lesions to the occipital scalp, no induration, minimal erythema Eyes: PERRLA, EOMI, conjunctiva normal, no discharge. Neck: Normal range of motion, supple, no stridor. Cardiovascular: Heart rate regular rhythm. 2+ radial pulses Lungs & Thorax: No respiratory distress, symmetrical expansion. Skin: Warm, dry. Extremities: No tenderness, no cyanosis, ROM intact, no edema. Neurologic: Alert and oriented X 3, normal motor function, normal sensory funct ion, no focal deficits noted. Non ataxic gait. GCS 15. Psychologic: Affect normal, judgment normal, mood normal. Current Patient Data: Vital Signs: Vital Signs Date Time Temp Pulse Resp B/P (MAP) Pulse Ox O2 Delivery O2 Flow Rate FiO2 01/23/21 11:54 98.1 99 18 152/86 (108) 98 Room Air Heart Score: C/O Chest Pain: No Course & Med Decision Making: Course & Med Decision Making We will treat patient for a simple cellulitis with Keflex, there is no sign of necrotizing infection and patient otherwise looks well. He is at his baseline with regard to his stroke. He was given ibuprofen at his request for his chronic gout pain. Departure Departure: Impression: Primary Impression: Cellulitis of scalp Disposition: HOME / SELF CARE / HOMELESS Condition: GOOD Referrals: PCP,NO (PCP) Patient Instructions: Cellulitis, [id number] Additional Instructions: You were seen for a skin infection called cellulitis. You should trinity the area of redness when you get home. If your redness spreads past the marked area at 24 hours you should have it evaluated again. You do not have a focused area of infection called an abscess right now, but you could develop one. If so you will need to have it drained. You should return to the ED immediately if you develop worsening pain, fever, swelling, redness, drainage, any sign of abscess, or any other new or concerning symptoms. Take the entire course of antibiotics as prescribed. You have been given a prescription for Keflex. This medicine is an antibiotic for cellulitis. This medication was sent to the [facility] in [place]. Please take as prescribed for the full course of the prescription. Do not stop taking the medicine early if you feel better, as this could risk building antibiotic resistance and may put you at risk for a more harmful infection later. The most common side effect of antibiotics include nausea, vomiting, diarrhea and rash. Please come to be evaluated if you develop any symptoms that are concerning to you. One major adverse effect of antibiotics is the development of a diarrheal illness called c. diff colitis, if you develop an excessive amount of diarrhea or are concerned about this please return to the ER or consult a physician. Scripts Cephalexin (CEPHALEXIN) 500 Mg Tablet 1 TAB PO BID for cellulitis for 5 Days, #10 TAB Prov: YONATAN ANAYA DO 01/23/21 YONATAN ANAYA DO Jan 23, 2021 11:54
== END 2021-01-23 12:07 | disposition home or self-care (01) ==
LOC: ER 11:38
DX: L03.811 Cellulitis of head [any part, except face] (principal); J44.9 Chronic obstructive pulmonary disease, unspecified; I10 Essential (primary) hypertension; F17.210 Nicotine dependence, cigarettes, uncomplicated; Z95.0 Presence of cardiac pacemaker
CPT/HCPCS: 99283

== ENCOUNTER 2021-04-09 12:09 | Emergency (ER) | payer OTHER ==
[~2021-04-09] VITALS: Ht 175.3 cm; Wt 68.2 kg
[~2021-04-09 12:09] MED LIST changes: -LEVO500T8 PO; +LEVO500T9 PO
[2021-04-09 12:58] VITALS: BP 125/86
[2021-04-09] MEDS ORDERED: SULF1TAB24 PO (13:23)
--- NOTE | 2021-04-09 13:23 | PHYS DOC ---
Past History Past Medical History: COPD, Hypertension, Other Additional Past Medical Histor: Prior intravenous drug use, pacemaker, COPD Past Surgical History: No Surgical History Additional Past Surgical Histo: Pacemaker placement, aortic valve replacement Smoking: Cigarettes Alcohol Use: None General Adult EDM: Chief Complaint: HALLUCINATIONS AUDIBLE/VISUAL HPI: HPI: Patient is a 66-year-old male that presents today with what he believes is worms and sores on his head. Patient states he has had these sores for a number of months he said that the last couple days he has been scratching them and he has been "getting worms out ". Patient states that since there worms he is asking for ivermectin to help with the worms in his sores. Patient denies fever and chills no uncontrolled hemorrhaging noted Review of Systems: Review of Systems: Constitutional: Denies fever or chills Eyes: Denies change in visual acuity HENT: Open sores on his scalp area Respiratory: Denies cough or shortness of breath Cardiovascular: Denies chest pain or edema GI: Denies abdominal pain, nausea, vomiting, bloody stools or diarrhea : Denies dysuria Musculoskeletal: Denies back pain or joint pain Integument: Denies rash Neurologic: Denies headache, focal weakness or sensory changes Endocrine: Denies polyuria or polydipsia Lymphatic: Denies swollen glands Psychiatric: Denies depression or anxiety Allergies: Allergies: Allergies Coded Allergies Type Severity Reaction Last Updated Verified No Known Drug Allergies 04/09/20 No Physical Exam: PE: Constitutional: Well developed, well nourished, no acute distress, non-toxic appearance. [] HENT: Multiple areas of lesions in his scalp area, no uncontrolled hemorrhaging noted, no purulent drainage noted, no signs and symptoms of infection noted, no live insects noted or insects noted Eyes: PERRLA, EOMI, conjunctiva normal, no discharge. [] Neck: Normal range of motion, no tenderness, supple, no stridor. [] Cardiovascular:Heart rate regular rhythm, no murmur [] Lungs & Thorax: Bilateral breath sounds clear to auscultation [] Abdomen: Bowel sounds normal, soft, no tenderness, no masses, no pulsatile masses. [] Skin: Warm, dry, no erythema, no rash. [] Back: No tenderness, no CVA tenderness. [] Extremities: No tenderness, no cyanosis, no clubbing, ROM intact, no edema. [] Neurologic: Alert and oriented X 3, normal motor function, normal sensory function, no focal deficits noted. [] Psychologic: Affect normal, judgement normal, mood normal. [] Current Patient Data: Vital Signs: Vital Signs Date Time Temp Pulse Resp B/P (MAP) Pulse Ox O2 Delivery O2 Flow Rate FiO2 04/09/21 12:58 98.1 60 18 125/86 (99) Room Air EKG: EKG: [] Radiology/Procedures: Radiology/Procedures: [] Heart Score: C/O Chest Pain: N/A Risk Factors: Risk Factors: DM, Current or recent (<one month) smoker, HTN, HLP, family history of CAD, obesity. Risk Scores: Score 0 - 3: 2.5% MACE over next 6 weeks - Discharge Home Score 4 - 6: 20.3% MACE over next 6 weeks - Admit for Clinical Observation Score 7 - 10: 72.7% MACE over next 6 weeks - Early Invasive Strategies Course & Med Decision Making: Course & Med Decision Making Pertinent Labs and Imaging studies reviewed. (See chart for details) Concern for cellulitis in these wounds, will order Bactrim DS for the patient to be taken twice daily for the next 7 days, patient instructed to return for any fever or chills, or and infectious process noted Dragon Disclaimer: Nieves Disclaimer: This electronic medical record was generated, in whole or in part, using a voice recognition dictation system. Departure Departure: Impression: Primary Impression: Folliculitis Disposition: HOME / SELF CARE / HOMELESS Condition: STABLE Referrals: PCP,NO (PCP) SURENDRA JIMÉNEZ MD Patient Instructions: Folliculitis Additional Instructions: Take Bactrim twice daily for 7 full days May try shampoo with tea tree oil to help with folliculitis in your scalp also to help with any concerns of insects Return to the emergency department for any cellulitic issues or fever or chills Scripts Sulfamethoxazole/Trimethoprim (BACTRIM DS TABLET) 1 Each Tablet 1 TAB PO BID for cellulitits for 7 Days, #14 TAB 0 Refills Prov: JANELL VIVEROS NETWORK ACCOUNT MANAGER 04/09/21 JANELL VIVEROS NETWORK ACCOUNT MANAGER Apr 09, 2021 13:23
== END 2021-04-09 13:40 | disposition home or self-care (01) ==
LOC: ER 12:09
DX: L73.9 Follicular disorder, unspecified (principal); J44.9 Chronic obstructive pulmonary disease, unspecified; I10 Essential (primary) hypertension; F17.210 Nicotine dependence, cigarettes, uncomplicated; Z95.0 Presence of cardiac pacemaker
CPT/HCPCS: 99283

== ENCOUNTER 2021-09-08 11:03 | Emergency (ER) | payer OTHER ==
[~2021-09-08] VITALS: Ht 175.3 cm; Wt 68.2 kg
[2021-09-08 11:03] VITALS: BP 138/89
[~2021-09-08 11:03] MED LIST changes: +SULF1TAB24 PO
--- NOTE | 2021-09-08 11:34 | EKG ---
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
--- NOTE | 2021-09-08 11:38 | PHYS DOC ---
Past History Past Medical History: COPD, Hypertension, Other Additional Past Medical Histor: Prior intravenous drug use, pacemaker, COPD Past Surgical History: No Surgical History Additional Past Surgical Histo: Pacemaker placement, aortic valve replacement Smoking: Cigarettes Alcohol Use: None General Adult EDM: Chief Complaint: CONGESTION HPI: HPI: Patient is a 66-year-old male who presents to the emergency department for nasal and chest congestion with a green productive cough with shortness of breath that started 1 month ago. Patient does have a history of COPD but reports he does not take any inhalers or anything at home for his diagnosis. Patient denies fev er, nausea, vomiting, sick exposures. Review of Systems: Review of Systems: Constitutional: See HPI HENT: See HPI Respiratory: See HPI Cardiovascular: HPI GI: See HPI ea Allergies: Allergies: Allergies Coded Allergies Type Severity Reaction Last Updated Verified No Known Drug Allergies 04/09/20 No Physical Exam: PE: Constitutional: Well developed, well nourished, no acute distress, non-toxic appearance. [] HENT: Normocephalic, atraumatic, bilateral external ears normal, oropharynx moist, no oral exudates, nose normal. [] Eyes: PERRL, EOMI, conjunctiva normal, no discharge. [] Neck: Normal range of motion, no tenderness, supple, no stridor. [] Cardiovascular:Heart rate regular rhythm, no murmur [] Lungs & Thorax: Bilateral breath sounds clear to auscultation [] Abdomen: Bowel sounds normal, soft, no tenderness, no masses, no pulsatile masses. [] Skin: Warm, dry, no erythema, no rash. [] Back: No tenderness, normal range of motion Extremities: No tenderness, no cyanosis, no clubbing, ROM intact, no edema. [] Neurologic: Alert and oriented X 3, normal motor function, normal sensory function, no focal deficits noted. [] Psychologic: Affect normal, judgement normal, mood normal. [] Current Patient Data: Labs: Laboratory Tests Test 09/08/21 11:30 Influenza Type A (Rapid) Negative Influenza Type B (Rapid) Negative SARS-CoV-2 Antigen (Rapid) Negative EKG: EKG: [] Radiology/Procedures: Radiology/Procedures: []PATIENT: SHELLEY SANTIAGO LACCOUNT: [id number]#: [id number] : 1955 LOCATION: ER AGE: 66 SEX: M EXAM STATUS: REG ER ORD. PHYSICIAN: HOMER GONZALES APRN REASON: cough PROCEDURE: CHEST PA & LATERAL XR CHEST 2V CLINICAL INDICATIONS: Reason: cough / Spl. Instructions: / History: COMPARISON: October 23, 2020. Findings: Chronic interstitial lung disease is seen. There is a new lung infiltrate within the medial left lower lobe. No pleural effusion or pneumothorax is seen. Pacemaker and cardiac valve prosthesis and sternotomy are again evident The heart size, pulmonary vasculature, mediastinum and both marlin are otherwise unremarkable. Old healed proximal left humerus fracture is evident. IMPRESSION: Left lower lobe infiltrate. Electronically signed by: Lupe Christianson MD (09/08/2021 11:50 AM) [id number] DICTATED AND SIGNED BY: LUPE CHRISTIANSON MD DATE: 09/08/21 1148 CC: RENE TUTTLE MD; HOMER GONZALES APRN ~ Heart Score: C/O Chest Pain: N/A Risk Factors: Risk Factors: DM, Current or recent (<one month) smoker, HTN, HLP, family history of CAD, obesity. Risk Scores: Score 0 - 3: 2.5% MACE over next 6 weeks - Discharge Home Score 4 - 6: 20.3% MACE over next 6 weeks - Admit for Clinical Observation Score 7 - 10: 72.7% MACE over next 6 weeks - Early Invasive Strategies Course & Med Decision Making: Course & Med Decision Making Pertinent Labs and Imaging studies reviewed. (See chart for details) [] Patient resents to the emergency department for a green productive cough with nasal congestion and chest congestion as well as shortness of breath that sta rted 1 month ago. He has a history of COPD. Testing for COVID and influenza was performed in the emergency department. Chest x-ray performed to rule out pneumonia. Patient had negative COVID and influenza testing. Chest x-ray shows a left lower lobe infiltrate. He will be discharged home with an antibiotic and an albuterol inhaler. I discussed with patient all findings and diagnostic testing as well as the need to follow-up with PCP for further evaluation and treatment or return to the ER if any new or worsening symptoms. Strict return precautions were also discussed at length. Patient voiced understanding and agreement with the plan. Patient is hemodynamically stable at the time of disposition. Dragon Disclaimer: DragLocalsensor Disclaimer: This electronic medical record was generated, in whole or in part, using a voice recognition dictation system. Departure Departure: Impression: Primary Impression: Pneumonia Qualified Codes: J18.9 - Pneumonia, unspecified organism Disposition: HOME / SELF CARE / HOMELESS Condition: GOOD Referrals: RENE TUTTLE MD (PCP) Patient Instructions: Pneumonia, Adult Additional Instructions: You were seen in the emergency department for cough and shortness of breath. You had negative COVID and influenza testing. Your chest x-ray does show p neumonia and you be treated with 2 antibiotics. Please start and finish them completely. You are also being discharged home with an albuterol inhaler that you can use as needed for shortness of breath or wheezing. Please follow-up with your primary care provider tomorrow regarding your ER visit. I advised you to purchase a pulse oximeter at the pharmacy and monitor your oxygen saturations at home. Please return to the emergency department if your oxygen saturation drops below 90%. Return to the emergency department if you develop worsening of your shortness of breath, chest pain, high fevers refractory to treatment, tractable nausea or vomiting, weakness, altered mental status or any new or worsening concerns. Scripts Albuterol Sulfate (PROAIR HFA INHALER) 8.5 Gm Hfa.aer.ad 2 PUFF IH PRN Q4-6HRS PRN for wheezing for 21 Days, #1 INHALER 0 Refills as needed for wheezing Prov: HOMER GONZALES APRN 09/08/21 Doxycycline Hyclate (DOXYCYCLINE HYCLATE) 100 Mg Capsule 1 CAP PO BID for PNEUMONIA for 5 Days, #10 CAP 0 Refills Prov: HOMER GONZALES APRN 09/08/21 Amoxicillin/Potassium Clav (AUGMENTIN 875-125 TABLET) 1 Each Tablet 1 TAB PO BID for PNEUMONIA for 5 Days, #10 TAB 0 Refills Prov: HOMER GONZALES APRN 09/08/21 HOMER GONZALES APRN September 08, 2021 11:38
--- NOTE | 2021-09-08 11:53 | RAD ---
XR CHEST 2V CLINICAL INDICATIONS: Reason: cough / Spl. Instructions: / History: COMPARISON: October 23, 2020. Findings: Chronic interstitial lung disease is seen. There is a new lung infiltrate within the medial left lower lobe. No pleural effusion or pneumothorax is seen. Pacemaker and cardiac valve prosthesis and sternotomy are again evident The heart size, pulmonary vasculature, mediastinum and both marlin ar e otherwise unremarkable. Old healed proximal left humerus fracture is evident. IMPRESSION: Left lower lobe infiltrate. Electronically signed by: William Christianson MD (09/08/2021 11:50 AM) [id number]
[2021-09-08 12:08] LABS: INFLUENZA A PATIENT NEGATIVE (NEGATIVE); INFLUENZA B PATIENT NEGATIVE (NEGATIVE)
[2021-09-08] MEDS ORDERED: DOXY100C3 PO (12:29)
[2021-09-08] MEDS ORDERED: ALBU2.5V8 IH (12:29)
[2021-09-08] MEDS ORDERED: AMOX1TAB61 PO (12:29)
== END 2021-09-08 12:35 | disposition home or self-care (01) ==
LOC: ER 11:03
DX: J18.9 Pneumonia, unspecified organism (principal); J44.9 Chronic obstructive pulmonary disease, unspecified; I10 Essential (primary) hypertension; F17.210 Nicotine dependence, cigarettes, uncomplicated; Z20.822 Contact with and (suspected) exposure to COVID-19; Z95.0 Presence of cardiac pacemaker
CPT/HCPCS: 71046; 87428; 93005; 99285